=== PATIENT | female | born 1985 | race Asian ===

== ENCOUNTER 2024-12-09 10:20 | Emergency (ER) | payer OTHER, SELFPAY ==
[2024-12-09 10:25] VITALS: BP 99/61
--- NOTE | 2024-12-09 13:05 | ED.GENMED ---
History of Present Illness
General
Chief Complaint: Musculo-Skeletal Complaint
Source: patient
Exam Limitations: none
Time Seen by Provider: 12/09/24 10:58
Nursing documentation reviewed up to this point in time: agreed with
History of Present Illness
History of Present Illness:
39-year-old female with no medical history presents for evaluation of right toe injury. She says she stubbed her right fifth toe against the door and asked for to be evaluated. Denies any other injuries. She has a small cut on the margin of the
nail.
Review of Systems
Review of Systems
Musculoskeletal: Reports other (Toe injury)
Phy Exam
Physical Exam
Physical Exam:
Exam reveals a well-appearing 39-year-old female who appears stated age. She is awake and alert and her vital signs are normal. She does not appear to be in distress. She is breathing comfortably. On exam of her right foot she has no edema and
she has good distal perfusion with brisk capillary refill. She has no significant swelling or deformity the right fifth toe; she has a very tiny abrasion to the medial aspect of the toe and mild distal tenderness of the toe but she is able to fully
flex and extend the toe with minimal pain. The toenail is intact appears to have been bent back slightly but well adhered to the nailbed.
Scores
Heart Failure Risk
Heart Failure Risk Score: Not Applicable
Heart Score for Chest Pain Patients
STEMI patient?: Not applicable
Withdrawal Assessment of Alcohol
Withdrawal Assessment Completed?: Not applicable
Course
Vital Signs
Initial and Last Documented VS:
Initial Vital Signs
Temp Pulse Resp BP Pulse Ox
36.6 C 78 16 99/61 97
12/09/24 10:25 12/09/24 10:25 12/09/24 10:25 12/09/24 10:25 12/09/24 10:25
Last Documented Vital Signs
Temp Pulse Resp BP Pulse Ox
36.6 C 78 16 99/61 97
12/09/24 10:25 12/09/24 10:25 12/09/24 10:25 12/09/24 10:25 12/09/24 10:25
MDM/Problems Addressed
Differential Diagnosis Includes:
Toe fracture, toe contusion
MDM/Problems Addressed:
39-year-old female presents for evaluation of a toe injury. She has a minor toe contusion likely partially avulsed nail has tiny abrasion. Advised supportive care, stable for discharge.
Patient left prior to receiving her discharge paperwork.
*Pulse Oximetry
Patient hypoxic: no
*Critical Care Note
Total Time (30-74mins, 75-104mins- exclusive of procedures): Not Applicable
Data Reviewed
Further Testing Considered But Not Given:
Considered toe x-ray
ED Attending Note
-
Portions of this chart may have been created with voice recognition software.� Occasional wrong word or��sound alike� substitutions may have occurred due to the inherent limitations of voice recognition software.
Discharge Plan
Departure
Patient Disposition: Home (Routine Discharge)
Date of Disposition: 12/09/24
Time of Disposition: 12:21
Patient with high blood pressure during this ER visit?: No
Discharge Problem:
Toenail avulsion, Contusion of toe
Instructions: Contusion (DC)
Referrals:
UNKNOWN - PT DOES,NOT KNOW [Family Provider] -
Interventions
Interventions:
*Risk Screen - Suicide Last Done: 12/09/24 10:25
*General Assessment Last Done: 12/09/24 11:01
*Neglect/Abuse Screening Last Done: 12/09/24 10:25
ED- Fall Risk Assessment Last Done: 12/09/24 11:01
*Nursing Disposition Last Done: 12/09/24 12:18
ED-Musculoskeletal Assessment Last Done: 12/09/24 11:01
Discharge Date and Time
Discharge Date/Time: 12/09/24 12:23
Print Language: GREEK
== END 2024-12-09 12:23 | disposition home or self-care (01) ==
LOC: EMR 10:20
PROVIDERS: EMERGENCY PHYSICIAN Emergency Medicine
DX: S91.204A Unspecified open wound of right lesser toe(s) with damage to nail, initial encounter (principal); S90.221A Contusion of right lesser toe(s) with damage to nail, initial encounter; W22.09XA Striking against other stationary object, initial encounter
CPT/HCPCS: 99282